=== PATIENT | male | born 1955 | race Caucasian/White ===

== ENCOUNTER → 2020-03-12 10:17 | Outpatient (CLI) | payer MEDICARE, OTHER, SELFPAY ==
[2020-03-12 11:30] LABS: Hematocrit 44.5 % (41-53); Mean Corpuscular HGB Conc 33.7 % (30-36); Mean Corpuscular Hemoglobin 29.3 PG (26-34); Mean Corpuscular Volume 87.1 fL (80-100); Platelet Count 372 X10^3/uL (150-400); Red Blood Cell Count 5.11 X10^6/uL (4.5-5.9); Red Cell Distribution Width 14.1 % (11.6-14.8); White Blood Cell Count 11.1 X10^3/uL (4.5-11.0)
[2020-03-12 11:53] LABS: Neutrophils Absolute Manual 9102 /uL (3000-5900); Total Cells Counted 100
[2020-03-12 11:54] LABS: RBC Morphology Normal Morphology
[2020-03-12 12:02] LABS: Alanine Aminotransferase 36 IU/L (<50); Albumin 4.5 g/dL (3.5-5.0); Albumin Globulin Ratio 1.6 (1.0-2.8); Alkaline Phosphatase 79 U/L (38-126); Amylase 69 U/L (30-110); Aspartate Aminotransferase 26 IU/L (17-59); BUN Creatinine Ratio 16.7 (6-22); Bilirubin Total 0.9 mg/dL (0.2-1.3); Blood Urea Nitrogen 17 mg/dL (9-20); Calcium 9.6 mg/dL (8.4-10.2); Carbon Dioxide 24 mmol/L (22-32); Chloride 103 mmol/L (98-107); Estimated Glomerular Filt Rate > 60.0 mL/min (>60); Globulin 2.9 g/dL (1.7-4.1); Glucose 89 mg/dL (80-110); HEMOLYSIS < 15 (0-50); Lipase 133 U/L (23-300); Potassium 4.4 mmol/L (3.4-5.1); Sodium 136 mmol/L (137-145); Total Protein 7.4 g/dL (6.3-8.2)
[2020-03-12 12:32] LABS: TSH w/ Reflex to FT4 1.59 uIU/mL (0.47-4.68)
[2020-03-13 06:36] LABS: HBsAg Screen Negative (Negative); Hepatitis A Antibody IgM Negative (Negative); Hepatitis B Core Antibody IgM Negative (Negative); Hepatitis C Antibody <0.1 s/co ratio (0.0-0.9)
== END ==
PROVIDERS: PCP Family Medicine; Referring Provider Physician Assistant; Visit Provider Physician Assistant
DX: R19.7 Diarrhea, unspecified (principal)
CPT/HCPCS: 36415; 80053; 80074; 82150; 83690; 84443; 85025

== ENCOUNTER → 2022-02-23 15:52 | Outpatient (CLI) | payer MEDICARE, OTHER, SELFPAY | PROVIDERS: Visit Provider Physician Assistant | DX: R30.0 Dysuria (principal) | CPT/HCPCS: 87086 ==

== ENCOUNTER → 2023-01-02 10:30 | Outpatient (CLI) | payer OTHER, MEDICARE, SELFPAY ==
--- NOTE | 2023-01-02 10:32 | DI.RAD.S_ITS ---
PROCEDURE: XR CERVICAL SPINE 4V OR 5V INDICATIONS: NECK PAIN TECHNIQUE: 5 views of the cervical spine acquired. COMPARISON: None. FINDINGS: Bones: No fractures or dislocations to the T7 level. Oblique images on the left demonstrate severe foraminal stenosis at C1-2, C3-4, C4-5, C5-6, and C6-7. Severe neural foraminal stenosis on the right is present at C2-3 C5-6 and C6-7. There is intervertebral disc space narrowing and osteophytosis most severe at C3-4 C5-6 and C6-7. Soft tissues: No prevertebral soft tissue swelling. IMPRESSION: Degenerative change and foraminal stenosis bilaterally as above. Dictated by: Marifer Morton M.D. on 01/02/2023 at 12:15 Approved by: Marifer Morton M.D. on 01/02/2023 at 12:19
--- NOTE | 2023-01-02 10:32 | DI.RAD.S_ITS ---
PROCEDURE: XR LUMBAR SPINE MIN 4V INDICATIONS: LBP TECHNIQUE: 5 views of the lumbar spine were acquired, including bilateral oblique views. COMPARISON: None. FINDINGS: Bones: 5 nonrib-bearing vertebrae are present. There is grade 1 L2 on L3 and L3 on L4 retrolisthesis. There is diffuse intervertebral disc space narrowing, endplate sclerosis and osteophytosis. These findings are most severe at L2-3 and L3-4. No vertebral body compression fractures. No suspicious bony lesions. Soft tissues: Overlying bowel gas pattern is normal. There are scattered atheromatous calcifications within the abdominal aorta. Oblique images: No pars defects where visualized. The L4-5 and L5-S1 left-sided pars interarticularis are not well characterized. IMPRESSION: 1. Moderate degenerative change of the lumbar spine. 2. No spondylolysis where visualized although the distal left pars interarticularis are not visualized. Dictated by: Marifer Morton M.D. on 01/02/2023 at 12:05 Approved by: Marifer Morton M.D. on 01/02/2023 at 12:06
== END ==
PROVIDERS: Referring Provider Physical Medicine & Rehabilitation; Visit Provider Physical Medicine & Rehabilitation
DX: M47.812 Spondylosis without myelopathy or radiculopathy, cervical region (principal); M48.02 Spinal stenosis, cervical region; M47.816 Spondylosis without myelopathy or radiculopathy, lumbar region; M54.2 Cervicalgia; M54.50 Low back pain, unspecified
CPT/HCPCS: 72050; 72110

== ENCOUNTER → 2023-01-08 09:34 | Outpatient (CLI) | payer MEDICARE, OTHER, SELFPAY ==
--- NOTE | 2023-01-08 09:38 | DI.RAD.S_ITS ---
PROCEDURE: XR HAND LT MIN 3V INDICATIONS: Left CMC joint arthritis TECHNIQUE: 3 views of the hand(s) acquired. COMPARISON: None. FINDINGS: Bones: No fractures or dislocations. Carpal bones are normally aligned. No suspicious bony lesions. Soft tissues: No suspicious soft tissue calcifications. IMPRESSION: No acute fracture. No osseous lesion. If symptoms and/or clinical suspicion for pathology persist, further assessment with repeat, or advanced imaging (e.g., CT, MRI, or bone scan) may be helpful for further assessment. Dictated by: Walt Campbell M.D. on 01/08/2023 at 9:02 Approved by: Walt Campbell M.D. on 01/08/2023 at 9:02
== END ==
PROVIDERS: Referring Provider Physical Medicine & Rehabilitation; Visit Provider Physical Medicine & Rehabilitation
DX: M19.90 Unspecified osteoarthritis, unspecified site (principal)
CPT/HCPCS: 73130

== ENCOUNTER → 2024-04-08 09:14 | Outpatient (CLI) | payer MEDICARE, OTHER, SELFPAY ==
--- NOTE | 2024-04-08 09:16 | DI.ECHO.S_ITS ---
[facility] : : [address] : : [place] : : [id number] : : Phone: [phone] Echocardiogram Report + + :Name: AKBAR BLUM Study Date: 04/08/2024 Height: 74 in : :[facility] ReadingLocation: Weight: 248 lb : : Gender: Male BSA: 2.4 m2 : :: 1955 Age: 69 yrs BP: 162/108 mmHg: :Reason For Study: Murmur : :Ordering Physician: Shaun : :Fabi Sebastian Performed By: Tahmina Lozoya : :Referring: SHAUN SEBASTIAN : + + Interpretation Summary 1) Normal left ventricular thickness, size, wall motion, and systolic function (EF 60-65%). 2) Normal right ventricular size with mildly reduced function. 3) There is mild aortic stenosis (valve area 1.6cm2, mean gradient 12mmHg). There is mild aortic regurgitation. 4) No prior Echo available for comparison. Procedure: A two-dimensional transthoracic echocardiogram with color flow and Doppler was performed. The study quality was technically adequate. There is no prior echocardiogram noted for this patient. The patient was in sinus rhythm with heart rates between 64-81 bpm during the exam. Left Ventricle: The left ventricle is normal in size and wall thickness. The ejection fraction is estimated to be 55-60%. Left ventricular systolic function appears normal without focal wall motion abnormalities. Diastolic parameters suggest a relaxation abnormality of the left ventricle, consistent with probable normal filling pressures. Right Ventricle: The right ventricle is grossly normal size. Right ventricular systolic function is mildly reduced. Atria: The left atrial size is normal. Right atrial size is normal. There is no Doppler evidence for an interatrial shunt. Mitral Valve: The mitral valve leaflets appear mildly thickened, but open well. There is mild mitral regurgitation. Aortic Valve: The aortic valve is trileaflet. The aortic valve is mildly calcified. There is mild aortic stenosis. The aortic valve mean gradient is 12 mmHg. The peak aortic velocity is 2.3 m/sec. There is mild aortic regurgitation. Tricuspid Valve: The tricuspid valve is normal in structure and function. There is mild tricuspid regurgitation. Right ventricular systolic pressure is estimated to be 20 mmHg plus the clinically estimated CVP which cannot be estimated on this exam. Pulmonic Valve: The pulmonic valve leaflets are thin and pliable; valve motion is normal. There is no pulmonic valvular regurgitation. Great Vessels: The aortic root is normal size. The dimensions of the ascending aorta are normal. The inferior vena cava was not well visualized. Pericardium/ Pleura There is no pericardial effusion. There is no pleural effusion. MMode/2D Measurements & Calculations LVIDd: 6.2 cm LVOT diam: 2.1 cm LVIDs: 3.9 cm Ao root diam: 3.1 cm FS: 37.1 % asc Aorta Diam: 3.5 cm EPSS: 0.85 cm Ao Arch Diam (Prox Trans): 3.2 cm IVSd: 0.99 cm LVPWd: 0.88 cm LV mc. diameter/BSA (cm/m^2): 2.6 LV sys. diameter/BSA (cm/m^2): 1.6 LA A2 area: 20.3 cm2 RA long axis: 5.5 cm LA A4 area: 23.3 cm2 RA area: 20.9 cm2 LA length (vol): 5.8 cm RA vol: 68.0 ml LA vol: 68.7 ml RA : 28.6 ml/m2 LA vol index: 28.9 ml/m2 RVD2 (mid): 3.8 cm TAPSE: 1.5 cm Doppler Measurements & Calculations Ao V2 max: 227.0 cm/sec LVOT Max Jose: 97.4 cm/sec Ao V2 mean: 163.0 cm/sec LV V1 max P.8 mmHg Ao max P.6 mmHg LV V1 VTI: 22.1 cm Ao mean P.6 mmHg NIKKI(I,D): 1.6 cm2 Ao V2 VTI: 48.0 cm NIKKI(V,D): 1.5 cm2 sev ratio: 0.46 NIKKI indexed to BSA (cm^2/m^2): 0.65 MV E max jose: 67.4 cm/sec TR max jose: 225.4 cm/sec MV A max jose: 89.9 cm/sec TR max P.3 mmHg MV E/A: 0.75 PA V2 max: 108.2 cm/sec Med Peak E' Jose: 4.2 cm/sec PA V2 mean: 84.8 cm/sec E/E' med: 16.0 PA mean P.0 mmHg Lat Peak E' Jose: 6.0 cm/sec PA pr(Accel): 39.6 mmHg E/E' lat: 11.2 E/e' average: 13.6 MV dec time: 0.24 sec SV(LVOT): 74.7 ml Reading Physician:12:30 PM
== END ==
LOC: ECHO 09:15
PROVIDERS: Referring Provider Internal Medicine Cardiovascular Disease; Visit Provider Internal Medicine Cardiovascular Disease
DX: I08.3 Combined rheumatic disorders of mitral, aortic and tricuspid valves (principal); R01.1 Cardiac murmur, unspecified
CPT/HCPCS: 93306

== ENCOUNTER → 2024-12-11 15:04 | Outpatient (ROUT) | payer MEDICARE, OTHER, SELFPAY | LOC: LAB 15:04 | PROVIDERS: PCP Physician Assistant | DX: L08.9 Local infection of the skin and subcutaneous tissue, unspecified (principal) | CPT/HCPCS: 87070; 87075; 87205 ==